=== PATIENT | male | born 1975 | race African-American/Black ===

== ENCOUNTER 2017-11-05 10:55 | Observation (INO) | payer MEDICAID ==
[~2017-11-05] VITALS: Ht 167.6 cm; Wt 108.0 kg
[~2017-11-05 10:55] MED LIST: AMLO10TA4 PO; CARV-39 PO; CARV3.122 PO; DOXA2TAB9 PO; HYDR-3240 PO; LEVO500T47 PO; LISI-170 PO; OMEG1CAP6 PO; TRIA1TAB3 PO
[2017-11-05 11:54] LABS: TROPONIN I 0.092 ng/mL (0.000-0.045)
[2017-11-05 11:54] LABS: MICROSCOPIC AUTO
[2017-11-05 11:55] LABS: ALANINE AMINOTRANSFERASE 30 U/L (12-78); ALBUMIN 3.6 g/dL (3.4-5.0); ANION GAP 8 mmol/L (5-15); CALCIUM 8.6 mg/dL (8.5-10.1); CHLORIDE 110 mmol/L (98-107)
[2017-11-05 11:57] LABS: ALKALINE PHOSPHATASE 79 U/L (45-117); BILIRUBIN,TOTAL 0.3 mg/dL (0.2-1.0); CREATININE 1.56 mg/dL (0.7-1.3); TOTAL PROTEIN 7.9 g/dL (6.4-8.2)
[2017-11-05 12:00] LABS: MEAN CORPUSCULAR HEMOGLOBIN 28.5 pg (27.5-34.5); MEAN CORPUSCULAR HGB CONC 33.7 g/dL (33.2-36.2); MEAN CORPUSCULAR VOLUME 84.5 fL (81-97); MEAN PLATELET VOLUME 9.3 fL (7.4-10.4); PLATELET COUNT 210 x10^3/uL (130-400); RED BLOOD COUNT 5.32 x10^6/uL (4.38-5.82); RED CELL DISTRIBUTION WIDTH 14.5 % (9.4-14.8)
[2017-11-05 12:01] LABS: CULTURE INDICATED? NO
[2017-11-05 12:19] LABS: BASOPHILS # (AUTO) 0.02 x10^3/uL (0-0.1); BASOPHILS % (AUTO) 1 % (0-1); EOSINOPHILS # (AUTO) 0.15 x10^3/uL (0-0.4); EOSINOPHILS % (AUTO) 4 % (1-7); LYMPHOCYTES # (AUTO) 1.13 x10^3/uL (1-3.4); LYMPHOCYTES % (AUTO) 33 % (22-44); MD SCAN; MONOCYTES # (AUTO) 0.27 x10^3/uL (0.2-0.8); MONOCYTES % (AUTO) 8 % (2-9); NEUTROPHILS # (AUTO) 1.82 x10^3/uL (1.8-6.8); NEUTROPHILS % (AUTO) 54 % (42-75)
[2017-11-05] MEDS ORDERED: ASPIRIN 81 MG TABLET CHEW ONE (12:19)
[2017-11-05 12:26] LABS: INTERNATIONAL NORMALIZED RATIO 0.95 (0.93-1.1); PROTHROMBIN TIME 9.9 Seconds (9.6-11.5)
[2017-11-05] MEDS ORDERED: ASPIRIN 81 MG TABLET CHEW PO ONE (12:30)
[2017-11-05] MEDS ORDERED: SODIUM CHLORIDE FLUSH 10ML SYR IVF ONE (12:30)
[2017-11-05 13:59] VITALS: BP 166/101
[2017-11-05 14:06] VITALS: BP 156/89
[2017-11-05] MEDS: SODIUM CHLORIDE 0.9% 1,000 ML IV SCH (14:59)
[2017-11-05] MEDS ORDERED: ACETAMINOPHEN 325 MG TABLET PO PRN (15:00)
[2017-11-05] MEDS ORDERED: ONDANSETRON ODT 4 MG PO PRN (15:00)
[2017-11-05] MEDS ORDERED: TRAZODONE 50MG TABLET PO PRN (15:00)
[2017-11-05] MEDS ORDERED: BISACODYL 10 MG SUPP PR PRN (15:00)
[2017-11-05] MEDS ORDERED: hydrALAzine 20 MG/ML, 1ML IVPush PRN (15:00)
[2017-11-05] MEDS ORDERED: ONDANSETRON 2MG/ML, 2ML IVPush PRN (15:00)
[2017-11-05] MEDS ORDERED: DOCUSATE 100 MG CAPSULE PO PRN (15:00)
[2017-11-05] MEDS: NICOTINE 7 MG/24 HR PATCH.TD24 TD SCH (15:08)
[2017-11-05] MEDS: HEPARIN 5,000 UNITS/ML, 1ML SQ SCH ×2 (15:09→22:19)
[2017-11-05 15:20] LABS: CHOLESTEROL, TOTAL 214 mg/dL (140-239); TRIGLYCERIDES 133 mg/dL (50-200); VLDL CHOLESTEROL 27 mg/dL (0-25)
[2017-11-05 15:24] LABS: CHOL/HDL RATIO 3.8; FREE T4 (FREE THYROXINE) 0.83 ng/dL (0.76-1.46); HDL CHOL % 26 % (26-37); HDL CHOLESTEROL (DIRECT) 56 mg/dL (40-60); LDL CHOLESTEROL,CALCULATED 131 mg/dL (54-169); LDL/HDL RATIO 2.3 (0.5-3.0); TROPONIN I 0.087 ng/mL (0.000-0.045)
[2017-11-05 15:37] LABS: HEMOGLOBIN A1C 6.5 % (4.2-6.3)
[2017-11-05 20:25] VITALS: BP 138/84
[2017-11-05] MEDS: CARVEDILOL 25 MG TABLET PO SCH (20:49)
[2017-11-05] MEDS: LISINOPRIL 20 MG TABLET PO SCH (20:49)
[2017-11-05] MEDS ORDERED: ATORVASTATIN 20 MG TABLET PO SCH (21:00)
[2017-11-05 21:12] LABS: TROPONIN I 0.081 ng/mL (0.000-0.045)
[2017-11-06 01:31] VITALS: BP 144/95
[2017-11-06 04:44] LABS: BASOPHILS # (AUTO) 0.02 x10^3/uL (0-0.1); BASOPHILS % (AUTO) 1 % (0-1); EOSINOPHILS # (AUTO) 0.17 x10^3/uL (0-0.4); EOSINOPHILS % (AUTO) 5 % (1-7); LYMPHOCYTES # (AUTO) 1.46 x10^3/uL (1-3.4); LYMPHOCYTES % (AUTO) 42 % (22-44); MD NO; MEAN CORPUSCULAR HEMOGLOBIN 28.7 pg (27.5-34.5); MEAN CORPUSCULAR HGB CONC 33.2 g/dL (33.2-36.2); MEAN CORPUSCULAR VOLUME 86.3 fL (81-97); MONOCYTES # (AUTO) 0.41 x10^3/uL (0.2-0.8); MONOCYTES % (AUTO) 12 % (2-9); NEUTROPHILS # (AUTO) 1.42 x10^3/uL (1.8-6.8); NEUTROPHILS % (AUTO) 41 % (42-75); PLATELET COUNT 186 x10^3/uL (130-400); RED BLOOD COUNT 4.84 x10^6/uL (4.38-5.82)
[2017-11-06] MEDS: SODIUM CHLORIDE 0.9% 1,000 ML IV SCH ×2 (04:47→04:55)
[2017-11-06 04:53] LABS: ANION GAP 5 mmol/L (5-15); CALCIUM 8.3 mg/dL (8.5-10.1); CHLORIDE 113 mmol/L (98-107); CREATININE 1.41 mg/dL (0.7-1.3)
[2017-11-06] MEDS: HEPARIN 5,000 UNITS/ML, 1ML SQ SCH ×2 (06:19→12:20)
[2017-11-06] MEDS ORDERED: PANTOPROZOLE 40MG TABLET PO SCH (07:30)
[2017-11-06 08:31] VITALS: BP 147/95
[2017-11-06] MEDS: LISINOPRIL 20 MG TABLET PO SCH (08:34)
[2017-11-06] MEDS: CARVEDILOL 25 MG TABLET PO SCH (08:34)
[2017-11-06] MEDS ORDERED: AMLODIPINE 5 MG TABLET PO SCH (09:00)
[2017-11-06] MEDS ORDERED: ATOR20TA9 PO (10:54)
[2017-11-06] MEDS ORDERED: HYDR-3343 PO (10:54)
[2017-11-06] MEDS: NICOTINE 7 MG/24 HR PATCH.TD24 TD SCH (12:21)
== END 2017-11-06 13:10 | disposition home or self-care (01) ==
LOC: ED 12:03 → INTOOBSV 12:04 → EDIP 12:04 → ED 12:38 → 5SO 13:28 → DCLOUNGE 11-06 12:30
PROVIDERS: ADMIT Internal Medicine; ATTEND Internal Medicine
DX: R10.9 Unspecified abdominal pain (principal); Z91.19 Patient's noncompliance with other medical treatment and regimen; I16.0 Hypertensive urgency; I50.22 Chronic systolic (congestive) heart failure; I13.0 Hypertensive heart and chronic kidney disease with heart failure and stage 1 through stage 4 chronic kidney disease, or unspecified chronic kidney disease; N18.9 Chronic kidney disease, unspecified; E66.9 Obesity, unspecified; E78.5 Hyperlipidemia, unspecified
CPT/HCPCS: 36415; 71045; 73564; 80048; 80053; 80061; 81001; 83036; 84439; 84443; 84484; 85025; 85610; 93005; 93306; 96360; 96361; 96372; 99285; G0378; J1644; J7030

== ENCOUNTER 2019-02-02 09:22 | Inpatient (IN) | payer MEDICAID ==
[~2019-02-02] VITALS: Ht 167.6 cm; Wt 113.0 kg
[~2019-02-02 09:22] MED LIST changes: +ATOR20TA37 PO; +HYDR-3343 PO
--- NOTE | 2019-02-02 09:29 | NUR ---
EKG IN TRIAGE
--- NOTE | 2019-02-02 09:48 | NUR ---
TO ROOM FROM LOBBY. NAD.
--- NOTE | 2019-02-02 09:58 | NUR ---
PT PLACED ON HEART MONITOR, BP CUFF, PULSE OX. RA SAT RANGING FROM 98%-90%, MOST CONSISTENTLY AT 94%. PT STATES INCREASED SOB WITH EXERTION. BILATERAL TRACE PEDAL EDEMA, PT STATES HAS DECREASED SINCE THIS AM. PT DENIES CP. IV PLACED, LABS DRAWN WITH START. CALL LIGHT WITHIN REACH, FAMILY AT BS.
[2019-02-02] MEDS ORDERED: SODIUM CHLORIDE FLUSH 10ML SYR IVF ONE (10:00)
[2019-02-02 10:18] LABS: BASOPHILS # (AUTO) 0.03 x10^3/uL (0-0.1); BASOPHILS % (AUTO) 1 % (0-1); EOSINOPHILS # (AUTO) 0.11 x10^3/uL (0-0.4); EOSINOPHILS % (AUTO) 3 % (1-7); LYMPHOCYTES # (AUTO) 0.72 x10^3/uL (1-3.4); LYMPHOCYTES % (AUTO) 17 % (22-44); MD NO; MEAN CORPUSCULAR HEMOGLOBIN 28.7 pg (27.5-34.5); MEAN CORPUSCULAR HGB CONC 32.5 g/dL (33.2-36.2); MEAN CORPUSCULAR VOLUME 88.4 fL (81-97); MEAN PLATELET VOLUME 8.5 fL (7.4-10.4); MONOCYTES # (AUTO) 0.38 x10^3/uL (0.2-0.8); MONOCYTES % (AUTO) 9 % (2-9); NEUTROPHILS # (AUTO) 3.11 x10^3/uL (1.8-6.8); NEUTROPHILS % (AUTO) 72 % (42-75); PLATELET COUNT 171 x10^3/uL (130-400); RED BLOOD COUNT 4.25 x10^6/uL (4.38-5.82); RED CELL DISTRIBUTION WIDTH 16.8 % (9.4-14.8)
[2019-02-02 10:22] LABS: ALANINE AMINOTRANSFERASE 58 U/L (12-78); ALBUMIN 2.9 g/dL (3.4-5.0); ANION GAP 9 mmol/L (5-15); CALCIUM 8.4 mg/dL (8.5-10.1); CHLORIDE 111 mmol/L (98-107); CREATININE 2.01 mg/dL (0.7-1.3)
[2019-02-02 10:27] LABS: ALKALINE PHOSPHATASE 70 U/L (45-117); BILIRUBIN,TOTAL 0.8 mg/dL (0.2-1.0)
[2019-02-02 10:34] LABS: TROPONIN I 0.185 ng/mL (0.000-0.045)
--- NOTE | 2019-02-02 10:45 | NUR ---
US AT BS, VSS/UPDATED IN COMPUTER.
[2019-02-02] MEDS ORDERED: CARV-39 PO (10:50)
[2019-02-02] MEDS ORDERED: LISI-170 PO (10:50)
[2019-02-02] MEDS ORDERED: LISINOPRIL 20 MG TABLET PO ONE (11:00)
[2019-02-02] MEDS ORDERED: LISINOPRIL 20 MG TABLET ONE (11:11)
[2019-02-02] MEDS ORDERED: FUROSEMIDE 20 MG/2 ML ONE ×2 (12:00→17:44)
[2019-02-02] MEDS ORDERED: SODIUM CHLORIDE 0.9%, 500ML IVBOLUS ONE (12:00)
[2019-02-02] MEDS ORDERED: FUROSEMIDE 20 MG/2 ML IV ONE (12:00)
--- NOTE | 2019-02-02 12:07 | NUR ---
LASIX GIVEN PER ERP ORDER, URINAL PROVIDED. PT TO CT.
[2019-02-02] MEDS ORDERED: OMNIPAQUE 350 MG/ML, 150 ML BOTTLE ONE (12:27)
--- NOTE | 2019-02-02 12:30 | NUR ---
[facility] IN TO SEE PT.
--- NOTE | 2019-02-02 12:42 | NUR ---
URINE COLLECTED/SENT TO LAB. OUTPUT RECORDED.
[2019-02-02] MEDS ORDERED: NITROGLYCERIN 0.4 MG/SPRAY SL PRN (13:00)
[2019-02-02] MEDS ORDERED: ONDANSETRON 2MG/ML, 2ML IVPush PRN (13:00)
[2019-02-02] MEDS ORDERED: SIMETHICONE 80 MG CHEW TAB PO PRN (13:00)
[2019-02-02] MEDS ORDERED: PHARMACY MAY ADJ FOR RENAL FX MC PRN (13:00)
[2019-02-02] MEDS ORDERED: POLYETHYLENE GLYCOL 17 GM PACKET PO PRN (13:00)
[2019-02-02] MEDS ORDERED: ACETAMINOPHEN 325 MG TABLET PO PRN (13:00)
[2019-02-02] MEDS ORDERED: NITROGLYCERIN 0.4 MG BOTTLE (25 TABS) SL PRN (13:00)
[2019-02-02] MEDS: INSULIN LISPRO 100 UNITS/ML, PEN SQ-INSULIN SCH ×3 (13:00→19:57)
[2019-02-02] MEDS ORDERED: DOCUSATE 100 MG CAPSULE PO PRN (13:00)
[2019-02-02] MEDS ORDERED: ONDANSETRON ODT 4 MG PO PRN (13:00)
--- NOTE | 2019-02-02 13:09 | NUR ---
URINAL EMPTIED, 900 OUTPUT. BP 160/125, CONTINUE TO MONITOR CLOSELY. AWAITING ADMISSION BED.
[2019-02-02 13:13] LABS: MICROSCOPIC AUTO
[2019-02-02 13:15] LABS: CULTURE INDICATED? NO
[2019-02-02 13:16] LABS: HEMOGLOBIN A1C 6.1 % (4.2-6.3)
--- NOTE | 2019-02-02 13:53 | NUR ---
RETROPERITONEAL US COMPLETED. PT ASKING FOR FOOD. DIET ORDER REVIEWED, ED CARDIAC DIET ORDERED. REGULAR DIET ALSO ORDERED FOR PT'S DAUGHTER.
[2019-02-02 14:15] LABS: AMPHETAMINE SCREEN, URINE Negative (Negative); BARBITURATE SCREEN, URINE Negative (Negative); BENZODIAZEPINE SCREEN, URINE Negative (Negative); CANNABINOID SCREEN, URINE Negative (Negative); COCAINE SCREEN, URINE Negative (Negative); METHADONE SCREEN, URINE Negative (Negative); OPIATE SCREEN, URINE Negative (Negative)
[2019-02-02] MEDS ORDERED: ALBUTEROL SULFATE 2.5 MG/3 ML ONE (14:40)
--- NOTE | 2019-02-02 14:52 | NUR ---
report from lora montenegro
[2019-02-02] MEDS ORDERED: HEPARIN 5,000 UNITS/ML, 1ML ONE (15:17)
[2019-02-02] MEDS ORDERED: hydrALAzine 20 MG/ML, 1ML ONE (15:17)
[2019-02-02] MEDS: hydrALAzine 20 MG/ML, 1ML IVPush PRN ×2 (15:20→22:08)
[2019-02-02] MEDS: HEPARIN 5,000 UNITS/ML, 1ML SQ SCH ×2 (15:20→21:07)
--- NOTE | 2019-02-02 15:25 | NUR ---
REPEAT BLOOD PRESSURE 182/162-MEDICATED W/ PRN HYDALAZINE SQ HEAPRIN ADMINISTERED WELL PATIENT HAS NOT TAKEN ASA TODAY REMNAIN ON SENIOR TECH MANUFACTURING ENGINEERING-WILL CONTINUE TO CLOSELY MONITOR ATE ENTIRE CARDIAC TRAY TEENAGE DAUGHTER REMAINS AT BEDSIDE-PLANS TO STAY WITH PATIENT HE IS ADMINITTED SHE HAS NOWHERE TO GO. LABORER SHAFT SINKING ATTEMPTED TO HELP PATIENT FIND ALTERNATIVE ARRANGEMENTS. UPDATED ON ESTIMATED POC CALL KUMAR IN HAND/SIDE RAILS UP
--- NOTE | 2019-02-02 15:55 | NUR ---
BLOOD PRESSURE IMPROVED TO 155/109 POST HYDRALZINE-STILL REPORT ZENG/CHEST PAIN W/ COUGHING RATED AT 7/10-TO MEDICATE SHORTLY WILL CONTINUE TO CLOSELY MONITOR
[2019-02-02] MEDS ORDERED: MORPHINE SULFATE 4 MG/ML, 1ML ONE ×2 (16:04→19:07)
[2019-02-02] MEDS: morphine SULFATE 10 MG/ML, 1ML IVPush PRN ×2 (16:10→19:11)
[2019-02-02 16:21] LABS: TROPONIN I 0.159 ng/mL (0.000-0.045)
--- NOTE | 2019-02-02 16:21 | NUR ---
CALL RECEIVED FROM [facility] OF 0.159 PROVIDER MADE AWARE PATIENT IN NO PAIN AT THIS TIME (MEDICATED W/ MORPHINE RECENTLY) VITALS STABLE ON FREIGHT ELEVATOR OPERATOR
--- NOTE | 2019-02-02 17:25 | NUR ---
WITH RE-ASSESSMENT PATIENT REPORTS PAIN NOW 0/10 REMAINS HYPERTENSIVE ON MONITOR 152/119-HOSPITALIST AWARE- TO RE-MEDICATE UPDATED ON ESTIMATED POC (WAITING ON BED AVAILABILITY) HOSPITAL BED ORDERED
[2019-02-02] MEDS: FUROSEMIDE 20 MG/2 ML IV SCH (17:46)
[2019-02-02] MEDS: CARVEDILOL 25 MG TABLET PO SCH (17:46)
--- NOTE | 2019-02-02 18:00 | NUR ---
TASK RN: PT MED NOTED. TRANSFERED ONTO A REGULAR HOSPITAL BED. PT ABLE TO STAND AND TRANSFER W/O DIFFICULTY. CALL LIGHT W/I REACH BEDSIDE TABLE W/I REACH. NAD NOTED.
--- NOTE | 2019-02-02 18:59 | NUR ---
B/P REBOUNDED TO 158/123-TO RE-MEDICATE VOIDED 650ML POST 2ND DOSE OF LASIX REPORTING PAIN REBOUNDED TO 7/10 (HEAD & LATERAL CHEST W/ COUGH) OTHEREISE SINUS RHYTHM ON MONITOR RESTING COMFORTABLY ON HOSPITAL BED CALL KUMAR IN HAND/SIDE RAILS UP
--- NOTE | 2019-02-02 19:20 | NUR ---
MEDICATED FOR PAIN RATED AT 10 DAUGHTER WENT HOME FSBS CHECKED:116-NOINSULIN ADMINISTERED PER SCALE. DINNER TRAY ORDERED. WILL CONTINUE TO MONITOR
--- NOTE | 2019-02-02 20:00 | NUR ---
PAIN IMPROVED TO 10/31, NOW 150/115. TO ADMIN AMLODIPINE SHORTLY NO COMPLAINTS TO CALLED REPORT FOR INPATIENT TRANSFER SOON
[2019-02-02] MEDS ORDERED: AMLODIPINE 5 MG TABLET ONE ×2 (20:14→20:22)
--- NOTE | 2019-02-02 20:20 | NUR ---
PATIENT MEDICATED PER EMAR W/ SCHEDULED AMLODIPINE & PRN ZOFRAN (SLIGHLY NAUSEATED AFTER EATING.)
[2019-02-02] MEDS ORDERED: ONDANSETRON 2MG/ML, 2ML ONE (20:22)
[2019-02-02] MEDS: AMLODIPINE 5 MG TABLET PO SCH (20:28)
[2019-02-02 21:07] VITALS: BP 154/115
[2019-02-02 22:00] VITALS: BP 181/135
[2019-02-02 23:00] LABS: TROPONIN I 0.162 ng/mL (0.000-0.045)
[2019-02-02 23:20] VITALS: BP 143/92
[2019-02-03 01:41] VITALS: BP 158/118
[2019-02-03] MEDS: ASPIRIN 325 MG TABLET PO SCH (05:18)
[2019-02-03] MEDS: CARVEDILOL 25 MG TABLET PO SCH (05:18)
[2019-02-03] MEDS: HEPARIN 5,000 UNITS/ML, 1ML SQ SCH ×3 (05:18→20:28)
[2019-02-03] MEDS: morphine SULFATE 10 MG/ML, 1ML IVPush PRN ×3 (05:25→20:50)
[2019-02-03 06:15] LABS: ANION GAP 5 mmol/L (5-15); CALCIUM 8.5 mg/dL (8.5-10.1); CHLORIDE 110 mmol/L (98-107); CREATININE 1.87 mg/dL (0.7-1.3)
[2019-02-03 06:18] LABS: BASOPHILS # (AUTO) 0.02 x10^3/uL (0-0.1); BASOPHILS % (AUTO) 0 % (0-1); EOSINOPHILS # (AUTO) 0.09 x10^3/uL (0-0.4); EOSINOPHILS % (AUTO) 2 % (1-7); LYMPHOCYTES # (AUTO) 0.83 x10^3/uL (1-3.4); LYMPHOCYTES % (AUTO) 16 % (22-44); MD NO; MEAN CORPUSCULAR HEMOGLOBIN 28.6 pg (27.5-34.5); MEAN CORPUSCULAR HGB CONC 32.2 g/dL (33.2-36.2); MEAN CORPUSCULAR VOLUME 88.7 fL (81-97); MEAN PLATELET VOLUME 8.8 fL (7.4-10.4); MONOCYTES # (AUTO) 0.34 x10^3/uL (0.2-0.8); MONOCYTES % (AUTO) 6 % (2-9); NEUTROPHILS # (AUTO) 4.02 x10^3/uL (1.8-6.8); NEUTROPHILS % (AUTO) 76 % (42-75); PLATELET COUNT 199 x10^3/uL (130-400); RED BLOOD COUNT 4.42 x10^6/uL (4.38-5.82); RED CELL DISTRIBUTION WIDTH 16.8 % (9.4-14.8)
[2019-02-03] MEDS: INSULIN LISPRO 100 UNITS/ML, PEN SQ-INSULIN SCH ×4 (07:30→20:29)
[2019-02-03 08:24] VITALS: BP 145/94
[2019-02-03] MEDS: AMLODIPINE 5 MG TABLET PO SCH ×2 (08:27→20:28)
[2019-02-03] MEDS: LISINOPRIL 20 MG TABLET PO SCH (08:27)
[2019-02-03] MEDS ORDERED: FAMOTIDINE 20 MG TABLET PO PRN (10:00)
[2019-02-03] MEDS: CETIRIZINE 10 MG TABLET PO SCH (10:25)
[2019-02-03] MEDS: FUROSEMIDE 20 MG/2 ML IV SCH ×2 (10:25→17:21)
[2019-02-03] MEDS: FLUTICASONE NASAL SPRAY 16GM NAS SCH ×2 (11:59→20:28)
[2019-02-03] MEDS: SODIUM CHLORIDE NASAL SPRAY 45ML BOTTLE NAS SCH ×2 (11:59→20:28)
[2019-02-03 12:53] VITALS: BP 146/96
[2019-02-03 18:41] VITALS: BP 133/88
[2019-02-03 20:27] VITALS: BP 142/99
[2019-02-04 01:28] VITALS: BP 154/109
[2019-02-04] MEDS: ASPIRIN 325 MG TABLET PO SCH (05:05)
[2019-02-04] MEDS: HEPARIN 5,000 UNITS/ML, 1ML SQ SCH ×3 (05:05→21:50)
[2019-02-04] MEDS: morphine SULFATE 10 MG/ML, 1ML IVPush PRN ×4 (05:49→21:51)
[2019-02-04 06:35] VITALS: BP 168/122
[2019-02-04] MEDS: hydrALAzine 20 MG/ML, 1ML IVPush PRN (06:42)
[2019-02-04] MEDS: INSULIN LISPRO 100 UNITS/ML, PEN SQ-INSULIN SCH ×4 (07:44→20:22)
[2019-02-04] MEDS: SODIUM CHLORIDE NASAL SPRAY 45ML BOTTLE NAS SCH ×2 (08:00→20:22)
[2019-02-04] MEDS: AMLODIPINE 5 MG TABLET PO SCH ×2 (08:00→20:21)
[2019-02-04] MEDS: FLUTICASONE NASAL SPRAY 16GM NAS SCH ×2 (08:00→20:22)
[2019-02-04] MEDS: FUROSEMIDE 20 MG/2 ML IV SCH (08:00)
[2019-02-04] MEDS: LISINOPRIL 20 MG TABLET PO SCH (08:00)
[2019-02-04] MEDS: CETIRIZINE 10 MG TABLET PO SCH (08:00)
[2019-02-04 09:10] VITALS: BP_SYST 146; BP_SYST 148; BP_DIAS 95
[2019-02-04 09:59] LABS: BASOPHILS # (AUTO) 0.02 x10^3/uL (0-0.1); BASOPHILS % (AUTO) 1 % (0-1); EOSINOPHILS # (AUTO) 0.17 x10^3/uL (0-0.4); EOSINOPHILS % (AUTO) 4 % (1-7); LYMPHOCYTES % (AUTO) 23 % (22-44); MD NO; MEAN CORPUSCULAR HEMOGLOBIN 28.8 pg (27.5-34.5); MEAN CORPUSCULAR HGB CONC 32.6 g/dL (33.2-36.2); MEAN CORPUSCULAR VOLUME 88.5 fL (81-97); MEAN PLATELET VOLUME 8.7 fL (7.4-10.4); MONOCYTES # (AUTO) 0.41 x10^3/uL (0.2-0.8); MONOCYTES % (AUTO) 10 % (2-9); NEUTROPHILS # (AUTO) 2.73 x10^3/uL (1.8-6.8); NEUTROPHILS % (AUTO) 63 % (42-75); PLATELET COUNT 209 x10^3/uL (130-400); RED BLOOD COUNT 4.75 x10^6/uL (4.38-5.82); RED CELL DISTRIBUTION WIDTH 17.2 % (9.4-14.8)
[2019-02-04 10:02] LABS: ANION GAP 6 mmol/L (5-15); CALCIUM 8.4 mg/dL (8.5-10.1); CHLORIDE 108 mmol/L (98-107)
[2019-02-04] MEDS: HYDROCHLOROTHIAZIDE 12.5 MG CAPSULE PO SCH ×2 (11:19→21:50)
[2019-02-04 12:24] VITALS: BP 154/97
[2019-02-04 19:33] VITALS: BP 165/111
[2019-02-04 21:46] VITALS: BP 157/115
[2019-02-04] MEDS: GUAIFENESIN 100 MG/5 ML, 5ML UDC PO PRN (21:50)
[2019-02-05] VITALS (11 sets, daily range): BP systolic 147–205; BP diastolic 97–139
[2019-02-05] MEDS: morphine SULFATE 10 MG/ML, 1ML IVPush PRN ×2 (04:33→07:59)
[2019-02-05 05:03] LABS: ANION GAP 5 mmol/L (5-15); CALCIUM 8.5 mg/dL (8.5-10.1); CHLORIDE 107 mmol/L (98-107)
[2019-02-05 05:04] LABS: CREATININE 2.08 mg/dL (0.7-1.3)
[2019-02-05] MEDS: ASPIRIN 325 MG TABLET PO SCH (05:21)
[2019-02-05] MEDS: HEPARIN 5,000 UNITS/ML, 1ML SQ SCH ×3 (05:22→20:05)
[2019-02-05] MEDS: INSULIN LISPRO 100 UNITS/ML, PEN SQ-INSULIN SCH ×4 (07:00→20:10)
[2019-02-05] MEDS: HYDROCHLOROTHIAZIDE 12.5 MG CAPSULE PO SCH ×2 (07:59→20:02)
[2019-02-05] MEDS: LISINOPRIL 20 MG TABLET PO SCH (07:59)
[2019-02-05] MEDS: AMLODIPINE 5 MG TABLET PO SCH (07:59)
[2019-02-05] MEDS: CETIRIZINE 10 MG TABLET PO SCH (08:00)
[2019-02-05] MEDS: ISOSORBIDE DINITRATE 10 MG TABLET PO SCH ×3 (10:41→20:03)
[2019-02-05] MEDS: LACTOBACILLUS CHEW TABLET PO SCH ×3 (10:41→20:03)
[2019-02-05] MEDS: SODIUM CHLORIDE NASAL SPRAY 45ML BOTTLE NAS SCH ×2 (17:37→20:02)
[2019-02-05] MEDS: FLUTICASONE NASAL SPRAY 16GM NAS SCH ×2 (17:37→20:02)
[2019-02-05] MEDS ORDERED: CARVEDILOL 6.25 MG TABLET PO SCH (18:00)
[2019-02-05] MEDS: hydrALAzine 20 MG/ML, 1ML IVPush PRN (21:26)
[2019-02-05] MEDS ORDERED: ENALAPRILAT 1.25 MG/ML, 2ML IV ONE (23:00)
[2019-02-06] MEDS: hydrALAzine 20 MG/ML, 1ML IVPush PRN ×2 (00:18→06:09)
[2019-02-06 00:26] VITALS: BP 200/134
[2019-02-06] MEDS: ISOSORBIDE MONONITRATE ER 60 MG TABLET PO SCH (00:57)
[2019-02-06 02:08] VITALS: BP 176/120
[2019-02-06 05:11] LABS: ANION GAP 5 mmol/L (5-15); CALCIUM 9.1 mg/dL (8.5-10.1); CHLORIDE 106 mmol/L (98-107); CREATININE 1.91 mg/dL (0.7-1.3)
[2019-02-06] MEDS: HEPARIN 5,000 UNITS/ML, 1ML SQ SCH ×3 (05:35→20:47)
[2019-02-06] MEDS: ASPIRIN 325 MG TABLET PO SCH (05:35)
[2019-02-06 05:37] VITALS: BP 187/128
[2019-02-06] MEDS: INSULIN LISPRO 100 UNITS/ML, PEN SQ-INSULIN SCH (07:00)
[2019-02-06 07:14] VITALS: BP 161/107
[2019-02-06] MEDS: LISINOPRIL 20 MG TABLET PO SCH (08:50)
[2019-02-06] MEDS: HYDROCHLOROTHIAZIDE 12.5 MG CAPSULE PO SCH (08:50)
[2019-02-06] MEDS: LACTOBACILLUS CHEW TABLET PO SCH ×3 (08:51→20:47)
[2019-02-06] MEDS: FLUTICASONE NASAL SPRAY 16GM NAS SCH ×2 (08:51→20:45)
[2019-02-06] MEDS: CETIRIZINE 10 MG TABLET PO SCH (08:51)
[2019-02-06] MEDS: SODIUM CHLORIDE NASAL SPRAY 45ML BOTTLE NAS SCH ×2 (08:52→20:45)
[2019-02-06] MEDS ORDERED: AMLODIPINE 5 MG TABLET PO ONE (10:00)
[2019-02-06] MEDS: ACETAMINOPHEN 325 MG TABLET PO PRN ×2 (10:05→16:12)
[2019-02-06 13:02] VITALS: BP 154/100
[2019-02-06 18:38] VITALS: BP 156/98
[2019-02-07] MEDS: ISOSORBIDE MONONITRATE ER 60 MG TABLET PO SCH (00:16)
[2019-02-07] MEDS: ACETAMINOPHEN 325 MG TABLET PO PRN ×4 (00:16→23:14)
[2019-02-07 01:07] VITALS: BP 164/90
[2019-02-07] MEDS: ASPIRIN 325 MG TABLET PO SCH (05:26)
[2019-02-07] MEDS: HEPARIN 5,000 UNITS/ML, 1ML SQ SCH ×3 (05:27→20:25)
[2019-02-07 06:41] VITALS: BP 152/98
[2019-02-07] MEDS: LACTOBACILLUS CHEW TABLET PO SCH ×3 (08:16→20:25)
[2019-02-07] MEDS: CETIRIZINE 10 MG TABLET PO SCH (08:17)
[2019-02-07] MEDS: HYDROCHLOROTHIAZIDE 25 MG TABLET PO SCH (08:17)
[2019-02-07] MEDS: LISINOPRIL 20 MG TABLET PO SCH (08:19)
[2019-02-07] MEDS: SODIUM CHLORIDE NASAL SPRAY 45ML BOTTLE NAS SCH ×2 (08:19→20:25)
[2019-02-07] MEDS: FLUTICASONE NASAL SPRAY 16GM NAS SCH ×2 (08:19→20:25)
[2019-02-07] MEDS: GUAIFENESIN 100 MG/5 ML, 5ML UDC PO PRN (12:12)
[2019-02-07 12:43] VITALS: BP 143/91
[2019-02-07 20:28] VITALS: BP 156/102
[2019-02-08 00:57] VITALS: BP 165/99
[2019-02-08] MEDS: ISOSORBIDE MONONITRATE ER 60 MG TABLET PO SCH (01:00)
[2019-02-08] MEDS: ACETAMINOPHEN 325 MG TABLET PO PRN ×2 (05:13→13:38)
[2019-02-08] MEDS: ASPIRIN 325 MG TABLET PO SCH (05:13)
[2019-02-08] MEDS: HEPARIN 5,000 UNITS/ML, 1ML SQ SCH ×2 (05:14→13:39)
[2019-02-08 08:15] VITALS: BP 161/111
[2019-02-08] MEDS: CETIRIZINE 10 MG TABLET PO SCH (08:33)
[2019-02-08] MEDS: LACTOBACILLUS CHEW TABLET PO SCH ×2 (08:33→15:51)
[2019-02-08] MEDS: SODIUM CHLORIDE NASAL SPRAY 45ML BOTTLE NAS SCH (08:33)
[2019-02-08] MEDS: FLUTICASONE NASAL SPRAY 16GM NAS SCH (08:33)
[2019-02-08] MEDS: HYDROCHLOROTHIAZIDE 25 MG TABLET PO SCH (08:34)
[2019-02-08] MEDS: LISINOPRIL 20 MG TABLET PO SCH (08:34)
[2019-02-08 10:06] LABS: ANION GAP 6 mmol/L (5-15); CALCIUM 8.8 mg/dL (8.5-10.1); CHLORIDE 105 mmol/L (98-107); CREATININE 2.02 mg/dL (0.7-1.3)
[2019-02-08 11:05] VITALS: BP 152/99
[2019-02-08 13:38] VITALS: BP 152/84
[2019-02-08] MEDS ORDERED: MAGNESIUM CITRATE 300ML ORAL SOL PO ONE (14:00)
[2019-02-08] MEDS ORDERED: BISACODYL 10 MG SUPP PR PRN (14:00)
[2019-02-08] MEDS ORDERED: AMLODIPINE 5 MG TABLET PO SCH (14:30)
[2019-02-08] MEDS ORDERED: HYDR-3342 PO (15:28)
[2019-02-08] MEDS ORDERED: AMLO-150 PO (15:28)
[2019-02-08] MEDS ORDERED: ACET325T26 PO (15:28)
[2019-02-08] MEDS ORDERED: ISOS60TA36 PO (15:28)
[2019-02-08] MEDS ORDERED: ACID1TAB7 PO (15:28)
[2019-02-08] MEDS ORDERED: HYDR25TA6 PO (15:28)
[2019-02-09] MEDS ORDERED: ISOSORBIDE MONONITRATE ER 60 MG TABLET PO SCH (09:00)
== END 2019-02-08 17:54 | disposition home or self-care (01) | DRG 280 ==
LOC: ED 10:37 → EDIP 10:38 → ED 10:52 → 5SO 20:44
PROVIDERS: ADMIT Internal Medicine; ATTEND Internal Medicine
DX: I21.4 Non-ST elevation (NSTEMI) myocardial infarction (principal); I50.33 Acute on chronic diastolic (congestive) heart failure; Z68.41 Body mass index [BMI] 40.0-44.9, adult; I13.0 Hypertensive heart and chronic kidney disease with heart failure and stage 1 through stage 4 chronic kidney disease, or unspecified chronic kidney disease; I42.9 Cardiomyopathy, unspecified; I16.1 Hypertensive emergency; N17.9 Acute kidney failure, unspecified; D64.9 Anemia, unspecified; E66.01 Morbid (severe) obesity due to excess calories; E88.09 Other disorders of plasma-protein metabolism, not elsewhere classified; F17.200 Nicotine dependence, unspecified, uncomplicated; G47.00 Insomnia, unspecified; G89.29 Other chronic pain; I27.81 Cor pulmonale (chronic); I44.30 Unspecified atrioventricular block; I50.82 Biventricular heart failure; J06.9 Acute upper respiratory infection, unspecified; J30.9 Allergic rhinitis, unspecified; K59.00 Constipation, unspecified; N18.3 Chronic kidney disease, stage 3 (moderate); Z82.49 Family history of ischemic heart disease and other diseases of the circulatory system; Z71.6 Tobacco abuse counseling; Z91.14 Patient's other noncompliance with medication regimen
CPT/HCPCS: 36415; 71046; 71275; 76770; 80048; 80053; 80307; 81001; 82962; 83036; 83735; 83880; 84484; 85025; 93005; 93306; 93970; 94640; 94762; 96374; G0378; J1644; J2405; Q9967; J0360; J1940; J2270; J7040